=== PATIENT | male | born 1955 | race Caucasian/White ===

== ENCOUNTER → 2020-07-01 00:51 | Outpatient (CLI) | payer MEDICARE, BC, SELFPAY ==
[2020-07-01 20:23] LABS: SARS-CoV-2 RNA PCR Negative
== END ==
PROVIDERS: PCP Family Medicine; Visit Provider Plastic Surgery
DX: Z01.812 Encounter for preprocedural laboratory examination (principal); Z20.822 Contact with and (suspected) exposure to COVID-19
CPT/HCPCS: C9803; U0003; U0005

== ENCOUNTER 2020-07-01 14:32 | Outpatient (CLI) | payer MEDICARE, BC, SELFPAY ==
--- NOTE | 2020-07-01 14:30 | ECG_ITS ---
Measurements Intervals [place] Rate: 66 P: 23 VA: 180 QRS: -18 QRSD: 122 T: 6 QT: 384 QTc: 405 Interpretive Statements SINUS RHYTHM INCOMPLETE RIGHT BUNDLE BRANCH BLOCK DELAYED PRECORDIAL R/S TRANSITION BORDERLINE ECG Electronically Signed On 07-01-2020 14:50:51 CDT by Andrew Scott D.O.
[2020-07-01 16:13] LABS: Anion Gap 5 mmol/L (8-16); Blood Urea Nitrogen 19 mg/dL (9-20); Calcium 9.4 mg/dL (8.4-10.2); Carbon Dioxide 29 mmol/L (22-30); Chloride 105 mmol/L (98-107); Estimated Glomerular Filt Rate > 60; Glucose 101 mg/dL (75-110); Potassium 3.8 mmol/L (3.4-5.0); Sodium 139 mmol/L (137-145)
== END 2020-07-01 14:33 | disposition home or self-care (01) ==
PROVIDERS: Anesthesiology; PCP Family Medicine; Visit Provider Plastic Surgery
DX: Z01.818 Encounter for other preprocedural examination (principal); I10 Essential (primary) hypertension; Z79.899 Other long term (current) drug therapy; I45.10 Unspecified right bundle-branch block
CPT/HCPCS: 36415; 80048; 93005; C9803; U0003; U0005

== ENCOUNTER 2020-07-04 01:18 | Day surgery (SDC) | payer MEDICARE, BC, SELFPAY ==
[2020-07-01 10:46] VITALS: BMI 31.8
--- NOTE | 2020-07-03 13:36 | WPDANESEPPF ---
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 Patient Data Age: 64 Gender: M Height: 5 ft 6.5 in Weight: 90.7 kg Allergies Allergy/AdvReac Type Severity Reaction Status Date / Time No Known Allergies Allergy Verified 07/01/20 10:43 Home Medications Medication Instructions Recorded Confirmed Type atorvastatin 10 mg PO DAILY 07/01/20 07/01/20 History esomeprazole magnesium 40 mg PO DAILY 07/01/20 07/01/20 History hydrochlorothiazide 12.5 mg PO DAILY 07/01/20 07/01/20 History losartan 50 mg PO DAILY 07/01/20 07/01/20 History Patient hx anesthesia problems: none Family hx anesthesia problems: none [facility] Past Medical History Medical History (Updated 07/04/20 @ 08:00 by Kenneth Geuvara MD) Arthritis Hyperlipidemia Hypertension Social History Social History Smoking status: Never smoker Alcohol intake: current Drinks per week: 56 Substance use: never Substance use type: does not use Living arrangements: with family Spiritual care concerns: No Anes - Eval Final PreProcedure Day of Procedure 07/03/20 13:36 Patient weight: obese Heart: regular rate and rhythm Lungs: clear to auscultation Airway: Mallampati scale class III Neurological: alert and oriented Last oral intake: >/= 8 hours ASA classification: III Emergent: no Anesthetic plan: proceed Anesthesia type and monitoring: general GIVS (use LMA) and standard monitoring Informed Consent: The patient's anesthetic plan and its attendant risks and benefits were discussed with the patient/family/POA. Questions were solicited and answers provided to the satisfaction of the patient/family/POA.
[2020-07-04 07:00] VITALS: BP 143/90; PULSE 63; RESP 16; TEMP 36.8; O2SAT 98
[2020-07-04] MEDS: LACTATED RINGERS 1,000 ML 30 ML IV CONT (07:00)
--- NOTE | 2020-07-04 07:02 | WPDHPUPDATE1 ---
History and Physical Update Update Date/Time: 07/04/20 07:02 History and Physical has been reviewed, including an updated exam of the patient. There are NO changes in the patient's condition. Risks, benefits, and alternatives have been discussed and questions answered. Patient agrees to proceed with procedure.
[2020-07-04] MEDS: LIDO 1%/EPINEPHRINE 1:100,000 50 ML VIAL 12 ML INFILTRATE (08:46)
[2020-07-04] MEDS: BACITRACIN OINTMENT 15 GM TUBE 1 APPLIC TOPICAL (08:46)
[2020-07-04 10:41] VITALS: BP 114/75; PULSE 81; RESP 12; O2SAT 95
--- NOTE | 2020-07-04 10:43 | PM.OP ---
Procedure Note - Brief Procedure Note - Brief Date of procedure: 07/04/20 Pre-op diagnosis: squamous cell carcinoma right nasal ala Post-op diagnosis: same Procedure performed: 1.5 cm excision of SCC of right nasal ala with FS and LTT 4 sq cm. Anesthesia: MAC Surgeon: Reyes Zamora MD Estimated blood loss (mL): 5 Pathology: yes Complications: No immediate complications Condition: stable Disposition: same day
--- NOTE | 2020-07-04 10:46 | PM.PROC ---
Procedure Note - Detailed Date of procedure: 07/04/20 Pre-op diagnosis: squamous cell carcinoma right nasal ala Post-op diagnosis: same Procedure performed: One point 5 cm excision of squamous cell carcinoma of the right nasal ala with frozen section and local tissue transfer 4 sq cm Description of procedure: The patient's right nasal ala was marked in the holding area. He was taken to the operating room and placed supine on the operating table. Time-out was held and confirmed. He was given IV sedation. The face and neck and were prepped and draped in usual fashion. The site was carefully examined and marked for excision. This area was widely infiltrated with 1% lidocaine with epinephrine. The full-thickness skin ellipse was taken from the right nasal ala with a marking at the inferior aspect for 12 o'clock. The tissue was sent to pathology for frozen section and the pathologist confirmed the diagnosis and indicated margins were free. A bilobed flap was designed on the right side of the nose, incised, elevated and rotated into position. That was tailored as needed and inset with 5 0 nylon suture. Anesthesia: MAC Surgeon: Reyes Zamora MD [employer]: Ayana Rosales Estimated blood loss (mL): 5 Drains: No Packing: No Pathology: yes Complications: No immediate complications Condition: stable Disposition: same day
[2020-07-04 11:10] VITALS: BP 104/81; PULSE 74
[2020-07-04] MEDS: oxyCODONE HCL (*CRX) 5 MG TAB IR PO (11:26)
[2020-07-04 11:40] VITALS: BP 133/63; PULSE 76
== END 2020-07-04 12:05 | disposition home or self-care (01) ==
PROVIDERS: PCP Family Medicine; Visit Provider Plastic Surgery
PROC: (CPT 14060; principal; 2020-07-04 08:30)
DX: C44.321 Squamous cell carcinoma of skin of nose (principal); I10 Essential (primary) hypertension; E78.5 Hyperlipidemia, unspecified; M19.90 Unspecified osteoarthritis, unspecified site; E66.9 Obesity, unspecified; Z68.31 Body mass index [BMI] 31.0-31.9, adult
CPT/HCPCS: 14060; 88305; 88331; A9270; J2250; J2704; J3010; J7120